=== PATIENT | male | born 2000 | race Two or more races ===

== ENCOUNTER 2019-11-14 15:33 | Emergency (ER) | payer SELFPAY ==
[~2019-11-14] VITALS: Ht 172.7 cm; Wt 100.0 kg
[2019-11-14] MEDS ORDERED: fentaNYL PF VIAL 100 MCG/2 ML VIAL IVP ONE (16:00)
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
--- NOTE | 2019-11-14 16:42 | RAD ---
Exam performed: X-ray left shoulder and humerus. HISTORY: Pain, suspected dislocation. DATE OF SERVICE: 11/14/2019. COMPARISON: None available FINDINGS: AP and lateral view of the left humerus as well as AP view of the left shoulder in internal and external rotation and bilateral view is obtained. There is anterior dislocation of the left shoulder with humeral head inferiorly position as compared to the glenoid fossa. No fractures are identified. The visualized elbow joint appears preserved. IMPRESSION: Anterior dislocation at the left shoulder joint. Electronically signed by: Linda Basurto MD (11/14/2019 4:39 PM) [id number]
[2019-11-14] MEDS ORDERED: MORPHINE SULFATE 2 MG/ML VIAL. IV ONE (16:45)
[2019-11-14 16:54] VITALS: BP 148/84
[2019-11-14] MEDS ORDERED: PROPOFOL 10 MG/ML (20ML) VIAL. IV ONE (17:15)
[2019-11-14 18:00] VITALS: BP 152/84
--- NOTE | 2019-11-14 18:11 | RAD ---
Examination: SHOULDER 2+V LEFT History: Attempted reduction Comparison/Correlation: Shoulder x-ray exam performed earlier on same day Findings: Two-view exam of the left shoulder was performed partial reduction of left anterior humeral dislocation is noted. No new fracture or bony destruction identified upon comparison with the prereduction images. Acromioclavicular joint is unremarkable. Impression: Subluxation is still seen. Incomplete reduction of the left glenohumeral joint dislocation. Electronically signed by: Esa Womack MD (11/14/2019 6:08 PM) [id number]
--- NOTE | 2019-11-14 19:20 | RAD ---
Exam: Left shoulder 2 views INDICATION: Post reduction TECHNIQUE: Frontal and lateral views of the left shoulder Comparisons: None FINDINGS: Bone mineralization is normal. Joint spaces are well-maintained. Soft tissues are unremarkable. No acute or healed fractures. IMPRESSION: Anatomic alignment of the left shoulder. Electronically signed by: Bharathi Rodriguez MD (11/14/2019 7:17 PM) [id number]
[2019-11-14] MEDS ORDERED: HYDR-3164 PO (19:43)
[2019-11-14] MEDS ORDERED: ORPH100T PO (19:43)
== END 2019-11-14 20:16 | disposition home or self-care (01) ==
LOC: ER 15:33
DX: S43.004A Unspecified dislocation of right shoulder joint, initial encounter (principal); V29.88XA Motorcycle rider (driver) (passenger) injured in other specified transport accidents, initial encounter; Y93.89 Activity, other specified; Y92.488 Other paved roadways as the place of occurrence of the external cause; Y99.8 Other external cause status
CPT/HCPCS: 23650; 73030; 73060; 96374; 99285; J2704; J3010

== ENCOUNTER 2021-11-18 03:03 | Emergency (ER) | payer SELFPAY ==
[~2021-11-18] VITALS: Ht 177.8 cm; Wt 127.2 kg
[~2021-11-18 03:03] MED LIST: HYDR-3164 PO; ORPH100T PO
--- NOTE | 2021-11-18 03:38 | ED.ADGEN ---
Past Medical History Past Medical History: No Pertinent History Past Surgical History: No Surgical History Smoking Status: Never Smoker Alcohol Use: None General Adult EDM: Chief Complaint: MULTIPLE COMPLAINTS HPI: HPI: Patient is a 21 year old male coming in for left flank pain that radiates to his left testicle. Patient states that some dysuria but no hematuria. The pain started about 4 hours prior to arrival. Tried taking ibuprofen without improvement. No other complaints. No history of kidney problems or kidney stones Review of Systems: Review of Systems: All other systems within normal limits except for as noted in the HPI Current Medications: Current Medications Medications (Trade) Dose Ordered Sig/Astrid Start Time Stop Time Status Last Admin Dose Admin Fentanyl Citrate (Fentanyl 2ml Vial) 75 mcg 1X ONCE 11/18/21 06:00 11/18/21 06:01 11/18/21 05:30 75 MCG Info (CONTRAST GIVEN -- Rx MONITORING) 1 each PRN DAILY PRN 11/18/21 04:45 11/20/21 04:44 Iohexol (Omnipaque 300 Mg/ml) 75 ml 1X ONCE 11/18/21 05:00 11/18/21 05:01 DC 11/18/21 05:28 75 ML Ketorolac Tromethamine (Toradol 15mg Vial) 15 mg 1X ONCE 11/18/21 04:00 11/18/21 04:01 DC 11/18/21 03:43 15 MG Allergies: Allergies: Allergies Coded Allergies Type Severity Reaction Last Updated Verified No Known Drug Allergies 11/18/21 No Physical Exam: PE: Constitutional: Well developed, well nourished, no acute distress, non-toxic appearance. [] HENT: Normocephalic, atraumatic, bilateral external ears normal, nose normal. [] Eyes: PERRLA, conjunctiva normal, no discharge. [] Neck: No rigidity, supple, no stridor. [] Cardiovascular: Regular rate and rhythm, brisk cap refill [] Lungs & Thorax: Non labored symmetric respirations, no tachypnea or respiratory distress [] Abdomen: Soft, nondistended, no abdominal pain. : Normal testes, no erythema or edema, uncircumcised. Skin: Warm, dry, no erythema, no rash. [] Back: Unremarkable, left flank pain, no right flank pain, no spine tenderness Extremities: No deformities, range of motion grossly intact, no lower extremity edema [] Neurologic: Alert and oriented X 3, no focal deficits noted. [] Psychologic: Affect normal, judgement normal, mood normal. [] Current Patient Data: Labs: Laboratory Tests Test 11/18/21 03:08 11/18/21 03:27 Urine Collection Type Unknown Urine Color Yellow Urine Clarity Clear Urine pH 5.5 (<5.0-8.0) Urine Specific [place] >=1.030 (1.000-1.030) Urine Protein Negative mg/dL (NEG-TRACE) Urine Glucose (UA) Negative mg/dL (NEG) Urine Ketones (Stick) Negative mg/dL (NEG) Urine Blood Moderate (NEG) Urine Nitrite Negative (NEG) Urine Bilirubin Negative (NEG) Urine Urobilinogen Dipstick 0.2 mg/dL (0.2 mg/dL) Urine Leukocyte Esterase Negative (NEG) Urine RBC 3-5 /HPF (0-2) Urine WBC Occ /HPF (0-4) Urine Squamous Epithelial Cells Few /LPF Urine Amorphous Sediment Present /HPF Urine Bacteria 0 /HPF (0-FEW) Urine Mucus Mod /LPF White Blood Count 7.3 x10^3/uL (4.0-11.0) Red Blood Count 4.67 x10^6/uL (4.30-5.70) Hemoglobin 13.7 g/dL (13.0-17.5) Hematocrit 41.1 % (39.0-53.0) Mean Corpuscular Volume 88 fL (79-100) Mean Corpuscular Hemoglobin 29 pg (25-35) Mean Corpuscular Hemoglobin Concent 33 g/dL (31-37) Red Cell Distribution Width 12.9 % (11.5-14.5) Platelet Count 296 x10^3/uL (140-400) Neutrophils (%) (Auto) 52 % (31-73) Lymphocytes (%) (Auto) 37 % (24-48) Monocytes (%) (Auto) 8 % (0-9) Eosinophils (%) (Auto) 3 % (0-3) Basophils (%) (Auto) 1 % (0-3) Neutrophils # (Auto) 3.7 x10^3/uL (1.8-7.7) Lymphocytes # (Auto) 2.7 x10^3/uL (1.0-4.8) Monocytes # (Auto) 0.6 x10^3/uL (0.0-1.1) Eosinophils # (Auto) 0.2 x10^3/uL (0.0-0.7) Basophils # (Auto) 0.1 x10^3/uL (0.0-0.2) Sodium Level 140 mmol/L (136-145) Potassium Level 4.0 mmol/L (3.5-5.1) Chloride Level 104 mmol/L (98-107) Carbon Dioxide Level 26 mmol/L (21-32) Anion Gap 10 (6-14) Blood Urea Nitrogen 24 mg/dL (8-26) Creatinine 1.0 mg/dL (0.7-1.3) Estimated GFR (Cockcroft-Gault) 93.4 BUN/Creatinine Ratio 24 (6-20) H Glucose Level 99 mg/dL (70-99) Calcium Level 10.0 mg/dL (8.5-10.1) Total Bilirubin 0.4 mg/dL (0.2-1.0) Aspartate Amino Transferase (AST) 21 U/L (15-37) Alanine Aminotransferase (ALT) 42 U/L (16-63) Alkaline Phosphatase 102 U/L (46-116) Total Protein 7.6 g/dL (6.4-8.2) Albumin 3.9 g/dL (3.4-5.0) Albumin/Globulin Ratio 1.1 (1.0-1.7) Lipase 81 U/L (73-393) Laboratory Tests 11/18/21 03:27 Laboratory Tests 11/18/21 03:27 Vital Signs: Vital Signs Date Time Temp Pulse Resp B/P (MAP) Pulse Ox O2 Delivery O2 Flow Rate FiO2 11/18/21 05:30 20 11/18/21 03:08 97.2 69 137/77 (97) 97 Room Air 97.2 EKG: EKG: [] Heart Score: C/O Chest Pain: No Risk Factors: Risk Factors: DM, Current or recent (<one month) smoker, HTN, HLP, family history of CAD, obesity. Risk Scores: Score 0 - 3: 2.5% MACE over next 6 weeks - Discharge Home Score 4 - 6: 20.3% MACE over next 6 weeks - Admit for Clinical Observation Score 7 - 10: 72.7% MACE over next 6 weeks - Early Invasive Strategies Radiology/Procedures: Radiology/Procedures: [facility] [address] [place] [address] IMAGING REPORT Signed PATIENT: RAMONA VANEGAS ACCOUNT: [id number] : 2000 LOCATION: ER AGE: 21 SEX: M EXAM STATUS: REG ER ORD. PHYSICIAN: BILL BROWN MD REASON: left testicle pain, ANTONY NOTIFIED @0336 PROCEDURE: TESTICULAR/SCROTUM Testicular duplex Doppler ultrasound HISTORY: Left testicle pain. TECHNIQUE: Grayscale and duplex Doppler sonography were utilized. FINDINGS: Right testicle measures 4.2 x 1.9 x 2.6 cm. Left testicle measures 4.5 x 2.0 x 2.7 cm. No testicular mass, edema, microlithiasis or hypervascularity. There is symmetric intact bilateral testicular blood flow. No evidence of testicular torsion. There is a right epididymal cyst which measures 1.7 x 1.2 x 1.1. No edema or hypervascularity of the epididymis bilaterally. No hydrocele. The left epididymis is normal. IMPRESSION: Right epididymal cyst. Testicles are normal. See above. Electronically signed by: Randall Foster MD (11/18/2021 5:27 AM) [facility] DICTATED and SIGNED BY: RANDALL FOSTER MD DATE: 11/18/21 [id number] [][place] [id number] [place] [address] IMAGING REPORT Signed PATIENT: RAMONA VANEGAS ACCOUNT: [id number] : 2000 LOCATION: ER AGE: 21 SEX: M EXAM STATUS: REG ER ORD. PHYSICIAN: BILL BROWN MD REASON: left flank and testicle pain , OMNI 300 75 ML IV PROCEDURE: CT ABD PELV W/ IV CONTRST ONLY CT abdomen and pelvis with contrast PQRS statement: CT scans at this facility use dose reduction including either automated exposure control, iterative reconstructions, and /or weight based radiation dosing via mA and kV modification when appropriate to reduce radiation dose to as low as reasonably achievable. HISTORY: Left flank pain and left testicle pain. Contrast: 75 mL Omnipaque 300 intravenous contrast. Abdomen findings: Disc bulges L4-5 and L5-S1. Lung bases are unremarkable. Gallbladder is packed with gallstones. Right kidney, adrenals, pancreas, spleen and liver are unremarkable. 2 mm left renal lower pole calculus. There is mild left renal hydronephrosis renal pelvis diameter is 1 cm and delayed left renal nephrogram and left renal edema associated with a 2 mm left ureterovesical junction obstructing calculus on image 96. The appendix is normal. No obstruction or inflammation of the GI tract. No abdominal fluid or adenopathy. Bilateral gynecomastia. Pelvis findings: 2 mm left ureterovesical junction calculus. Prostate, rectum and bones are unremarkable. IMPRESSION: 1. Mild left renal hydronephrosis and delayed left renal nephrogram and edema associated with a 2 mm obstructing left ureterovesical junction calculus. 2. The appendix is normal. 3. Gallstones. Electronically signed by: Randall Foster MD (11/18/2021 5:39 AM) [facility] DICTATED and SIGNED BY: RANDALL FOSTER MD DATE: 11/18/21 [id number] Course & Med Decision Making: Course & Med Decision Making Pertinent Labs and Imaging studies reviewed. (See chart for details) [] [place] Disclaimer: [place] Disclaimer: This electronic medical record was generated, in whole or in part, using a voice recognition dictation system. Departure Departure Impression: Primary Impression: Kidney stone on left side Disposition: 01 HOME / SELF CARE / HOMELESS Condition: STABLE Referrals: NO PCP (PCP) Patient Instructions: Kidney Stones Additional Instructions: Take an [id number] stool softener such as MiraLAX or docusate while taking hydrocodone pain medications to avoid constipation. Scripts Ibuprofen (IBUPROFEN) 800 Mg Tablet 800 MG PO PRN Q8HRS PRN for INFLAMMATION, #20 TAB Prov: BILL BROWN MD 11/18/21 Hydrocodone Bit/Acetaminophen (HYDROCODONE-APAP 5-325 ) 1 Tab Tablet 1 TAB PO PRN Q6HRS PRN for PAIN for 5 Days, #15 TAB 0 Refills Prov: BILL BROWN MD 11/18/21 BILL BROWN MD Nov 18, 2021 03:38
[2021-11-18 03:39] LABS: BILIRUBIN,URINE NEGATIVE (NEG); CLARITY,URINE CLEAR; COLOR,URINE YELLOW; NITRITE,URINE NEGATIVE (NEG); PH,URINE 5.5 (<5.0-8.0); PROTEIN,URINE NEGATIVE (NEG-TRACE); UROBILINOGEN,URINE 0.2 mg/dL (0.2 mg/dL)
[2021-11-18 03:40] LABS: BASO # 0.1 x10^3/uL (0.0-0.2); BASO % 1 % (0-3); EOS # 0.2 x10^3/uL (0.0-0.7); EOS % 3 % (0-3); HEMATOCRIT 41.1 % (39.0-53.0); HEMOGLOBIN 13.7 g/dL (13.0-17.5); LYMPH # 2.7 x10^3/uL (1.0-4.8); LYMPH % 37 % (24-48); MEAN CORPUSCULAR HEMOGLOBIN 29 pg (25-35); MEAN CORPUSCULAR HGB CONC 33 g/dL (31-37); MEAN CORPUSCULAR VOLUME 88 fL (79-100); MONO # 0.6 x10^3/uL (0.0-1.1); MONO % 8 % (0-9); NEUT # 3.7 x10^3/uL (1.8-7.7); NEUT % 52 % (31-73); PLATELET COUNT 296 x10^3/uL (140-400); RED BLOOD COUNT 4.67 x10^6/uL (4.30-5.70); RED CELL DISTRIBUTION WIDTH 12.9 % (11.5-14.5); WHITE BLOOD COUNT 7.3 x10^3/uL (4.0-11.0)
[2021-11-18 03:43] LABS: AMORPHOUS SEDIMENT,UR PRESENT /HPF; BACTERIA,URINE 0 /HPF (0-FEW); WBC,URINE OCC /HPF (0-4)
[2021-11-18 03:46] LABS: GFR 93.4
[2021-11-18 03:52] LABS: ALBUMIN 3.9 g/dL (3.4-5.0); ALBUMIN/GLOBULIN RATIO 1.1 (1.0-1.7); TOTAL BILIRUBIN 0.4 mg/dL (0.2-1.0); TOTAL PROTEIN 7.6 g/dL (6.4-8.2)
[2021-11-18] MEDS ORDERED: KETOROLAC 15 MG/ML VIAL. IVP ONE (04:00)
[2021-11-18] MEDS ORDERED: CONTRAST GIVEN. MC PRN (04:45)
[2021-11-18] MEDS ORDERED: IOHEXOL 300 MG/ML 100ML VIAL. IV ONE (05:00)
--- NOTE | 2021-11-18 05:29 | RAD ---
Testicular duplex Doppler ultrasound HISTORY: Left testicle pain. TECHNIQUE: Grayscale and duplex Doppler sonography were utilized. FINDINGS: Right testicle measures 4.2 x 1.9 x 2.6 cm. Left testicle measures 4.5 x 2.0 x 2.7 cm. No t esticular mass, edema, microlithiasis or hypervascularity. There is symmetric intact bilateral testic ular blood flow. No evidence of testicular torsion. There is a right epididymal cyst which measures 1 .7 x 1.2 x 1.1. No edema or hypervascularity of the epididymis bilaterally. No hydrocele. The left ep ididymis is normal. IMPRESSION: Right epididymal cyst. Testicles are normal. See above. Electronically signed by: Osbaldo Foster MD (11/18/2021 5:27 AM) [facility]
--- NOTE | 2021-11-18 05:41 | RAD ---
CT abdomen and pelvis with contrast PQRS statement: CT scans at this facility use dose reduction including either automated exposure cont rol, iterative reconstructions, and /or weight based radiation dosing via mA and kV modification when appropriate to reduce radiation dose to as low as reasonably achievable. HISTORY: Left flank pain and left testicle pain. Contrast: 75 mL Omnipaque 300 intravenous contrast. Abdomen findings: Disc bulges L4-5 and L5-S1. Lung bases are unremarkable. Gallbladder is packed with gallstones. Right kidney, adrenals, pancreas, spleen and liver are unremarkable. 2 mm left renal low er pole calculus. There is mild left renal hydronephrosis renal pelvis diameter is 1 cm and delayed l eft renal nephrogram and left renal edema associated with a 2 mm left ureterovesical junction obstruc ting calculus on image 96. The appendix is normal. No obstruction or inflammation of the GI tract. No abdominal fluid or adenopathy. Bilateral gynecomastia. Pelvis findings: 2 mm left ureterovesical junction calculus. Prostate, rectum and bones are unremarka ble. IMPRESSION: 1. Mild left renal hydronephrosis and delayed left renal nephrogram and edema associated with a 2 mm obstructing left ureterovesical junction calculus. 2. The appendix is normal. 3. Gallstones. Electronically signed by: Osbaldo Foster MD (11/18/2021 5:39 AM) [facility]
[2021-11-18] MEDS ORDERED: HYDR-2761 PO (05:49)
[2021-11-18] MEDS ORDERED: IBUP-1060 PO (05:49)
[2021-11-18 06:00] VITALS: BP 145/82
[2021-11-18] MEDS ORDERED: fentaNYL PF VIAL 100 MCG/2 ML VIAL IVP ONE (06:00)
== END 2021-11-18 06:08 | disposition home or self-care (01) ==
LOC: ER 03:03
DX: N13.2 Hydronephrosis with renal and ureteral calculous obstruction (principal)
CPT/HCPCS: 74177; 76870; 80053; 81001; 83690; 85025; 87491; 87591; 96374; 96375; 99285; J1885; J3010; Q9967